=== PATIENT | male | born 1945 | race Caucasian/White ===

== ENCOUNTER → 2023-04-29 | Outpatient (CLI) | payer BC | END | disposition home or self-care (01) | LOC: PF 11:39 | DX: J44.9 Chronic obstructive pulmonary disease, unspecified (principal); J84.9 Interstitial pulmonary disease, unspecified; Z20.822 Contact with and (suspected) exposure to COVID-19 | CPT/HCPCS: 94060; 87426; 94727; 94729; C9803 ==